=== PATIENT | female | born 2000 | race Caucasian/White ===

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

== ENCOUNTER 2019-04-28 23:58 | Emergency (ER) | payer OTHER ==
[~2019-04-28] VITALS: Ht 154.9 cm; Wt 77.1 kg
[2019-04-29 00:05] VITALS: BP 127/80
--- NOTE | 2019-04-29 00:08 | NUR ---
TO LOBBY A/W BED AMBULATORY
--- NOTE | 2019-04-29 01:49 | NUR ---
PT AMBULATED TO BED 11
--- NOTE | 2019-04-29 02:07 | NUR ---
19 YEAR OLD FEMALE COMPLAINS OF BODY ACHES X 4 DAYS. PATIENT STATES SHE WOULD ALSO FEEL CHILLS AND DIZZINESS. PATIENT STATES COUGH X 3 DAYS. LUNGS CTABL, BREATHING EVEN AND UNLABORED, RR 18, SPO2 100%. AOX4, SKIN WARM AND DRY. BED IN LOWEST POSITION, LOCKED, BED RAIL UPX1. PMH - DENIES ALLERGIES - NKA
[2019-04-29 02:56] VITALS: BP 124/78
--- NOTE | 2019-04-29 02:56 | NUR ---
Patient discharged with v/s stable. Written and verbal after care instructions ABOUT COUGH AND INFLUENZA given and explained. Patient alert, oriented and verbalized understanding of instructions. Ambulatory with steady gait. All questions addressed prior to discharge. ID band removed. Patient advised to follow up with PMD. Rx of CODEIN PHOSPHATE/PROMETHAZINE SYRUP AND IBUPROFEN given. Patient educated on indication of medication including possible reaction and side effects. Opportunity to ask questions provided and answered.
== END 2019-04-29 02:56 | disposition home or self-care (01) ==
LOC: MED 23:58
DX: R05 Cough (principal); J02.9 Acute pharyngitis, unspecified; R42 Dizziness and giddiness
CPT/HCPCS: 99283

== ENCOUNTER 2021-03-11 09:06 | Emergency (ER) | payer OTHER ==
[~2021-03-11] VITALS: Ht 157.5 cm; Wt 80.7 kg
[2021-03-11 09:13] VITALS: BP 142/89
--- NOTE | 2021-03-11 09:19 | NUR ---
TENT 1.
--- NOTE | 2021-03-11 09:20 | NUR ---
BIB SELF C/O COUGH, 7/10 SORE THROAT, SMITH, RUNNY NOSE, BODY ACHE X 2 DAYS. COVID TESTED NEGATIVE 2 DAYS AGO.
--- NOTE | 2021-03-11 10:28 | NUR ---
PT AMB TO BED 10.
[2021-03-11] MEDS ORDERED: DEXAMETHASONE 4 MG/ML VIAL PO ONE (11:05)
[2021-03-11 11:33] VITALS: BP 120/81
--- NOTE | 2021-03-11 11:33 | NUR ---
Patient discharged with v/s stable. Written and verbal after care instructions given FOR UPPER RESPIRATORY INFECTION and explained. Patient verbalized understanding. Ambulatory with steady gait. All questions addressed prior to discharge. Advised to follow up with PMD.
== END 2021-03-11 11:33 | disposition home or self-care (01) ==
LOC: MED 09:06
DX: J06.9 Acute upper respiratory infection, unspecified (principal)
CPT/HCPCS: 99283; J1100

== ENCOUNTER 2021-08-25 11:16 | Emergency (ER) | payer OTHER ==
[~2021-08-25] VITALS: Ht 154.9 cm; Wt 72.6 kg
[2021-08-25 11:31] VITALS: BP 113/73
--- NOTE | 2021-08-25 11:35 | NUR ---
PT AMBULATED TO BED 03.
--- NOTE | 2021-08-25 12:03 | NUR ---
21YO FEMALE PT C/O OF EARPAIN. PT STATES SHE INITIALLY HAD L EAR INFECTION 2 WEEKS AGO AND HAS BEEN TREATING WITH ANTIBIOTICS. PT DENIES PAIN FROM L EAR AT THIS TIME BUT HAS 10/10 SHARP PAIN FROM HER R EAR. PT STATES FEELING NAUSOUS AT TIMES CAUSING DECREASED APPETITE X2 DAYS. PT STATES ONLY DRINKING FLUIDS . PT DENIES HEADACHES OR DIZZINESS. DENIES CHEST PAIN, V/D OR FEVERS. PT AAOX4, ALL VITALS WITHIN NORMAL RANGE. ALL NEEDS MET THIS TIME NKA NHX
[2021-08-25] MEDS ORDERED: AMOX-1230 PO (12:24)
[2021-08-25] MEDS ORDERED: NAPR-54 PO (12:24)
--- NOTE | 2021-08-25 12:35 | NUR ---
PT FOR COVID(MERLY) AND STREP. HANDED TO LAB
--- NOTE | 2021-08-25 12:47 | NUR ---
So [email or web address] in ED - 08/25/21 at 1320 by [email or web address] Chart checked and completed. The patient's care was reviewed and supervised by Maylin Dewey RN.
--- NOTE | 2021-08-25 12:49 | NUR ---
Patient discharged with v/s stable. Written and verbal after care instructions FOR OTITIS MEDIA AND PHARYNGITIS given and explained. Patient alert, oriented and verbalized understanding of instructions. Ambulatory with steady gait. All questions addressed prior to discharge. ID band removed. Patient advised to follow up with PMD. Rx of NAPROXEN AND AMOXICILLIN given. Opportunity to ask questions provided and answered.
--- NOTE | 2021-08-25 12:50 | NUR ---
Chart checked and completed. The patient's care was reviewed and supervised by Maylin Dewey RN.
== END 2021-08-25 12:49 | disposition home or self-care (01) ==
LOC: MED 11:16
DX: J02.9 Acute pharyngitis, unspecified (principal); Z20.822 Contact with and (suspected) exposure to COVID-19; H66.91 Otitis media, unspecified, right ear; F17.210 Nicotine dependence, cigarettes, uncomplicated; Z79.899 Other long term (current) drug therapy
CPT/HCPCS: 87081; 99283